=== PATIENT | male | born 1960 | race Two or more races ===

== ENCOUNTER 2017-08-07 01:40 | Inpatient (IN) | payer MEDICAID ==
[~2017-08-07] VITALS: Ht 180.3 cm; Wt 84.8 kg
--- NOTE | 2017-08-07 01:45 | NUR ---
TO BED 5 A 57 YO MALE PATIENT BB RA60 FROM [facility]. SOB PHANTOM PAIN OF L FOOT; PT HAS L BKA. GIVEN DILAUDID @ [facility] @00:00. HOB ELEVATED. PLACED ON O2 CANNULA AT 4LPM VIA NC PER DR BURGOS'S ORDERS. CARDIAC AND VS MONITORING ON. COMFORT AND SAFETY MEASURES IN PLACE. DR BURGOS AT BEDSIDE TO [facility].
[2017-08-07 02:16] LABS: BASOPHILS % (AUTO) 0.3 % (0.0-2.0); HEMATOCRIT 28 % (39-51); LYMPHOCYTES # (AUTO) 0.7 /CMM (0.8-4.8); LYMPHOCYTES % (AUTO) 8.2 % (20.0-44.0); MEAN CORPUSCULAR HEMOGLOBIN 29 PG (26.0-33.0); MEAN CORPUSCULAR HGB CONC 32 g/dl (31.0-36.0); MEAN CORPUSCULAR VOLUME 92 fL (80-96); MONOCYTES # (AUTO) 0.5 /CMM (0.1-1.30); MONOCYTES % (AUTO) 6.6 % (2.0-12.0); NEUTROPHILS # (AUTO) 6.9 /CMM (1.8-8.9); NEUTROPHILS % (AUTO) 84.9 % (43.0-81.0); PLATELET COUNT (AUTO) 248 /CMM (150-450); RED BLOOD CELL COUNT(AUTO) 3.09 MIL/uL (4.5-6.0); WHITE BLOOD COUNT (AUTO) 8.1 K/uL (4.3-11.0)
[2017-08-07 02:24] LABS: CALCIUM, SERUM 8.8 mg/dL (8.5-10.1); CREATININE 2.3 mg/dL (0.6-1.3); POTASSIUM 4.3 mmol/L (3.5-5.1)
[2017-08-07 02:28] LABS: INR 1.08 (0.87-1.13); PROTHROMBIN TIME 11.2 SECS (9.5-12.7)
[2017-08-07 02:32] LABS: TROPONIN I 0.331 ng/mL (0.00-0.056)
[2017-08-07 02:37] LABS: ALBUMIN 2.4 g/dL (3.4-5.0); BILIRUBIN,DIRECT 0.2 mg/dL (0.0-0.2); BILIRUBIN,TOTAL 0.6 mg/dL (0.2-1.0)
--- NOTE | 2017-08-07 02:38 | NUR ---
TELE 314-2
[2017-08-07] MEDS ORDERED: ASPIRIN 325 MG TABLET ONE (02:47)
[2017-08-07] MEDS ORDERED: LEVOFLOXACIN 750 MG /D5W 150ML PIGGYBACK IV ONE (03:00)
[2017-08-07] MEDS ORDERED: AZTREONAM 1 G in IV NS 0.9% 100 ML IV ONE (03:00)
[2017-08-07] MEDS ORDERED: ASPIRIN 325 MG TABLET PO ONE (03:00)
[2017-08-07] MEDS ORDERED: AZTREONAM 1 G VIAL ONE (03:08)
--- NOTE | 2017-08-07 03:23 | NUR ---
REPORT GIVEN TO MICHELLE GARCIA AND ARLETTE.
[2017-08-07] MEDS ORDERED: EPOE1VIA7 SQ (03:33)
[2017-08-07] MEDS ORDERED: TAMS-12 PO (03:33)
[2017-08-07] MEDS ORDERED: FURO-144 PO (03:33)
[2017-08-07] MEDS ORDERED: LISI-603 PO (03:33)
[2017-08-07] MEDS ORDERED: MAGN200T5 PO (03:33)
[2017-08-07] MEDS ORDERED: ATOR40TA PO (03:33)
[2017-08-07] MEDS ORDERED: FOLI0.8T2 PO (03:33)
[2017-08-07] MEDS ORDERED: METO25TA6 PO (03:33)
[2017-08-07] MEDS ORDERED: CRAN500C5 PO (03:33)
[2017-08-07] MEDS ORDERED: LEVO25TA9 PO (03:33)
[2017-08-07] MEDS ORDERED: LINA5TAB PO (03:33)
[2017-08-07] MEDS ORDERED: ASPI-991 PO (03:33)
[2017-08-07] MEDS ORDERED: CRAN400T4 PO (03:33)
[2017-08-07] MEDS ORDERED: CHOL200026 PO (03:33)
--- NOTE | 2017-08-07 03:48 | NUR ---
Transferred patient to tele bed 314-1 via als protocol, no incident noted. Endorsed to [place] that levaquin be given. Written order in chart.
--- NOTE | 2017-08-07 03:50 | NUR ---
MODELING DIRECTOR OPENING NOTES RECEIVED PT FROM ER NURSE IN FAIR CONDITION. PT IS A/O X4. PT IS SOB UPON EXCRETION AND WHEN THE HOB IS LOWERED. HE IS ON 4L O2 VIA NC AND SATING WELL AT 95%. TELE MONITOR PLACED AND BELONGINGS VERIFIED BY HUMAN RESOURCES TECHNICIAN. PT WAS ORIENTED TO ROOM AND VERBALIZED UNDERSTANDING OF USE OF CALL LIGHT. BED IN LOW LOCKED POSITION, SIDE RAILS UP X2, CALL LIGHT WITHIN REACH. AT BEDSIDE. WILL BEGIN ADMISSION PROCESS AND WAIT FOR FURTHER ORDERS FROM THE MD.
--- NOTE | 2017-08-07 04:56 | NUR ---
DESKTOP MANAGER NOTES PT TAKEN DOWN FOR NM PULMONARY PERF W/VENT
[2017-08-07] MEDS ORDERED: LEVOFLOXACIN 750 MG /D5W 150ML 150 ML IV ONE (05:20)
[2017-08-07] MEDS ORDERED: EPOETIN ALFA (10,000 UNIT) 10,000 UNIT/ML VIAL SQ SCH (05:30)
[2017-08-07] MEDS ORDERED: HYDROMORPHONE INJ 2 MG/ML DISP.SYRIN IV PRN (05:30)
[2017-08-07] MEDS ORDERED: POLYETHYLENE GLYCOL 3350 17 GM POWD.PACK PO PRN (05:30)
[2017-08-07] MEDS ORDERED: ALBUTEROL FS 2.5 MG/3 ML VIAL.NEB NEB PRN (05:30)
[2017-08-07] MEDS ORDERED: ACETAMINOPHEN 325 MG TABLET PO PRN (05:30)
[2017-08-07] MEDS ORDERED: LEVOFLOXACIN 750 MG /D5W 150ML 750 MG in PREMIX 1 EA IV ONE (05:30)
[2017-08-07] MEDS ORDERED: DEXTROSE 50%-WATER 50 ML DISP.SYRIN IV PRN (05:30)
[2017-08-07] MEDS ORDERED: ALBUTEROL FS 2.5 MG/3 ML VIAL.NEB ONE (05:52)
[2017-08-07 06:14] VITALS: BP 148/94
[2017-08-07] MEDS: BLOOD SUGAR DIAGNOSTIC 1 EACH STRIP IN SCH ×4 (06:15→21:30)
[2017-08-07 06:33] LABS: ABG BASE EXCESS -6.6 mmol/L; ABG PCO2 24.6 mmHg (35.0-45.0); ABG PH 7.434 (7.350-7.450); ABG PO2 77.7 mmHg (75.0-100.0); AaDO2 42.6 mmHg; MetHb 0.8 % (0.0-1.5); O2Hb 93.3 % (94.0-97.0); SITE, ABG Right Radial; VENT MODE, BG room air
[2017-08-07] MEDS: INSULIN REGULAR, HUMAN 100 UNIT/ML 3 ML VIAL SQ PRN ×2 (06:59→17:37)
[2017-08-07 07:30] LABS: BASOPHILS % (AUTO) 0.2 % (0.0-2.0); HEMATOCRIT 28 % (39-51); LYMPHOCYTES # (AUTO) 0.4 /CMM (0.8-4.8); LYMPHOCYTES % (AUTO) 4.2 % (20.0-44.0); MEAN CORPUSCULAR HEMOGLOBIN 29 PG (26.0-33.0); MEAN CORPUSCULAR HGB CONC 32 g/dl (31.0-36.0); MEAN CORPUSCULAR VOLUME 91 fL (80-96); MONOCYTES # (AUTO) 0.2 /CMM (0.1-1.30); MONOCYTES % (AUTO) 2.4 % (2.0-12.0); NEUTROPHILS # (AUTO) 8.1 /CMM (1.8-8.9); NEUTROPHILS % (AUTO) 93.2 % (43.0-81.0); PLATELET COUNT (AUTO) 252 /CMM (150-450); RED BLOOD CELL COUNT(AUTO) 3.09 MIL/uL (4.5-6.0); WHITE BLOOD COUNT (AUTO) 8.7 K/uL (4.3-11.0)
[2017-08-07 07:31] LABS: ALBUMIN 2.4 g/dL (3.4-5.0); BILIRUBIN,TOTAL 0.6 mg/dL (0.2-1.0); CALCIUM, SERUM 8.6 mg/dL (8.5-10.1); CREATININE 2.4 mg/dL (0.6-1.3); MAGNESIUM 1.9 mg/dL (1.8-2.4); PHOSPHORUS 4.4 mg/dL (2.5-4.9); POTASSIUM 4.5 mmol/L (3.5-5.1); TOTAL PROTEIN, SERUM 7.1 g/dL (6.4-8.2)
--- NOTE | 2017-08-07 07:33 | NUR ---
RATE CLERK CLOSING NOTES PT STABLE AT THIS TIME AFTER PRN BREATHING TX. ATTEMPT MADE TO CALL OIL DEVELOPER [facility] DOCTOR IN REGARDS TO [facility], BUT NO CALL BACK. NIGHTSHIFT NURSE MADE AWARE OF RESULTS. LEVAQUIN INFUSION FINISHING AT THIS TIME. IV ACCESS REMAINS PATENT AND INTACT. NO REDNESS OR SIGNS OF INFILTRATION NOTED. PT IS SR ON THE TELE MONITOR WITH A HR OF 67. VITAL SIGNS REMAIN STABLE. PT IS [id number] AT 98% ON 3L O2. BED IN LOW LOCKED POSITION, SIDE RAILS UP X2, CALL LIGHT WITHIN REACH. PT'S AT BEDSIDE. WILL ENDORSE TO DAYSHIFT NURSE FOR ARLETTE
[2017-08-07 07:35] LABS: TROPONIN I 0.343 ng/mL (0.00-0.056)
--- NOTE | 2017-08-07 07:41 | NUR ---
MS RN RECEIVED ON BED, AWAKE,ALERT,ORIENTED X4,NOT IN ANY FORM OF DISTRESS, RESPIRATIONS EVEN AND UNLABORED,NO SOB NOTED, LUNGS ARE CLEAR,ABDOMEN SOFT,POSITIVE BOWEL SOUNDS, DENIES PAIN AT THIS TIME, WILL MONITOR PATIENT'S CONDITION.
[2017-08-07 07:47] LABS: THYROID STIMULATING HORMONE 2.75 uIU/mL (0.358-3.74)
[2017-08-07 08:00] VITALS: BP 129/81
[2017-08-07] MEDS ORDERED: FUROSEMIDE 100 MG/10 ML VIAL IV SCH (08:30)
[2017-08-07] MEDS ORDERED: BUMETANIDE INJ 0.25 MG/ML VIAL IV SCH (09:00)
--- NOTE | 2017-08-07 09:00 | NUR ---
MS RN REFUSED BREAKFAST AND MEDS, WILL TRY LATER.
--- NOTE | 2017-08-07 09:20 | NUR ---
MS RN WAS SEEN BY TERESA OWUSU/ BRIONNA TO BE TRANSFERRED TO [facility] TODAY.
[2017-08-07] MEDS ORDERED: MORPHINE SULFATE INJ 4 MG/ML DISP.SYRIN IV PRN (09:30)
--- NOTE | 2017-08-07 11:30 | NUR ---
MS RN TERESA OWUSU CALLED TO KEEP PATIENT HERE, BECAUSE SURGERY WILL NOT BE DONE AT [facility].
--- NOTE | 2017-08-07 12:00 | NUR ---
MS GARCIA BS -243- REFUSED COVERAGE BECAUSE REFUSED LUNCH, MEDS WAS GIVEN,TOLERATED WELL.
[2017-08-07] MEDS: VIT B CMPLX 3/FA/VIT C/BIOTIN 1 TAB TABLET PO SCH (15:10)
[2017-08-07] MEDS: ASPIRIN EC 81 MG TABLET.DR PO SCH (15:10)
[2017-08-07] MEDS: PANTOPRAZOLE 40 MG TABLET.DR PO SCH (15:10)
[2017-08-07] MEDS: LINAGLIPTIN 5 MG TABLET PO SCH (15:11)
[2017-08-07] MEDS: METOPROLOL TARTRATE 25 MG TABLET PO SCH ×2 (15:13→17:28)
[2017-08-07] MEDS: MAGNESIUM OXIDE 400 MG TABLET PO SCH (15:17)
[2017-08-07] MEDS: CHOLECALCIFEROL 1,000 UNIT TABLET (VIT D3) PO SCH (15:17)
[2017-08-07] MEDS: LEVOTHYROXINE SODIUM 25 MCG TABLET PO SCH (15:21)
[2017-08-07] MEDS: MORPHINE SULFATE INJ 4 MG/ML DISP.SYRIN IV PRN (15:22)
[2017-08-07 16:00] VITALS: BP 122/78
--- NOTE | 2017-08-07 17:20 | NUR ---
MS GARCIA BS - 280-12 UNITS OF REGULAR INSULIN GIVEN, NO CHANGE OF CONDITION.
[2017-08-07] MEDS: FUROSEMIDE 100 MG/10 ML VIAL IV SCH (17:27)
--- NOTE | 2017-08-07 19:15 | NUR ---
ECONOMIC DEVELOPER - INITIAL NOTES PATIENT IN BED ALERT AND ORIENTED X3. NO S/S OF SOB AT THIS MOMENT. PATIENT IS SINUS 86. FRIEND IS AT BEDSIDE. BED IN LOW POSITION AND LOCKED. SIDERAILS X2 UP. WILL CONTINUE TO MONITOR PATIENT.
[2017-08-07 20:00] VITALS: BP 140/75
[2017-08-07] MEDS: ATORVASTATIN 40 MG TABLET PO SCH (21:22)
[2017-08-07] MEDS: TAMSULOSIN 0.4 MG CAP.SR.24H PO SCH (21:22)
[2017-08-07] MEDS: *INSULIN REGULAR(HUMULIN R)HUM 100 UNIT/ML VIAL SQ PRN (21:29)
[2017-08-08] VITALS: BP 141/77
[2017-08-08] MEDS: MORPHINE SULFATE INJ 4 MG/ML DISP.SYRIN IV PRN ×6 (00:18→21:42)
[2017-08-08 04:00] VITALS: BP 151/97
[2017-08-08] MEDS ORDERED: LEVOFLOXACIN 250 MG /D5W 50 ML 250 MG in PREMIX 1 EA IV SCH (06:00)
[2017-08-08] MEDS: PANTOPRAZOLE 40 MG TABLET.DR PO SCH (06:37)
[2017-08-08] MEDS: LEVOTHYROXINE SODIUM 25 MCG TABLET PO SCH (06:37)
[2017-08-08] MEDS: BLOOD SUGAR DIAGNOSTIC 1 EACH STRIP IN SCH ×4 (06:37→21:42)
[2017-08-08] MEDS: INSULIN REGULAR, HUMAN 100 UNIT/ML 3 ML VIAL SQ PRN ×3 (06:38→17:45)
[2017-08-08 06:50] LABS: BASOPHILS % (AUTO) 0.5 % (0.0-2.0); EOSINOPHILS # (AUTO) 0.3 /CMM (0.0-0.7); EOSINOPHILS % (AUTO) 4.7 % (0.0-6.0); HEMATOCRIT 26 % (39-51); HEMOGLOBIN 8.2 g/dL (13.5-17.5); LYMPHOCYTES # (AUTO) 0.9 /CMM (0.8-4.8); LYMPHOCYTES % (AUTO) 13.5 % (20.0-44.0); MEAN CORPUSCULAR HEMOGLOBIN 29 PG (26.0-33.0); MEAN CORPUSCULAR HGB CONC 32 g/dl (31.0-36.0); MEAN CORPUSCULAR VOLUME 91 fL (80-96); MONOCYTES # (AUTO) 0.6 /CMM (0.1-1.30); MONOCYTES % (AUTO) 8.9 % (2.0-12.0); NEUTROPHILS # (AUTO) 4.9 /CMM (1.8-8.9); NEUTROPHILS % (AUTO) 72.4 % (43.0-81.0); PLATELET COUNT (AUTO) 213 /CMM (150-450); RDW COEFFICIENT OF VARIATION 23.1 (11.5-15.0); RED BLOOD CELL COUNT(AUTO) 2.81 MIL/uL (4.5-6.0); WHITE BLOOD COUNT (AUTO) 6.8 K/uL (4.3-11.0)
[2017-08-08 06:59] LABS: ALBUMIN 1.9 g/dL (3.4-5.0); BILIRUBIN,TOTAL 0.5 mg/dL (0.2-1.0); CALCIUM, SERUM 8.6 mg/dL (8.5-10.1); CREATININE 2.2 mg/dL (0.6-1.3); MAGNESIUM 1.7 mg/dL (1.8-2.4); PHOSPHORUS 3.6 mg/dL (2.5-4.9); POTASSIUM 3.5 mmol/L (3.5-5.1); TOTAL PROTEIN, SERUM 5.9 g/dL (6.4-8.2)
--- NOTE | 2017-08-08 06:59 | NUR ---
MEDICAID ANALYST - CLOSING NOTES PATIENT IN BED. ALERT AND ORIENTED X3. NO S/S OF SOB OR ANY DISCOMFORT NOTED. TELE READING OF SR 84. WILL CONTINUE TO MONITOR PATIENT.
[2017-08-08 07:38] LABS: TROPONIN I 3.785 ng/mL (0.00-0.056)
--- NOTE | 2017-08-08 07:40 | NUR ---
RN NOTES RECEIVED PT. PT IS AWAKE AND RESTING IN BED. A/OX4. NO S/S OF RESPIRATORY DISTRESS. PT C/O PAIN AT 8/10, WILL ADDRESS NON-PHARMACOLOGICALLY UNTIL PRN IS DUE. PT IS ON RA. IV ACCESS LOCATED ON RIGHT AC 22G SL. LAB REPORTED THAT TROP ELEVATED TO 3.785, AWARE. SAFETY MEASURES IN PLACE, CALL LIGHT WITHIN REACH. WILL CONTINUE TO MONITOR.
[2017-08-08 08:00] VITALS: BP 140/81
[2017-08-08] MEDS: ASPIRIN EC 81 MG TABLET.DR PO SCH (08:42)
[2017-08-08] MEDS: CHOLECALCIFEROL 1,000 UNIT TABLET (VIT D3) PO SCH (08:42)
[2017-08-08] MEDS: FUROSEMIDE 100 MG/10 ML VIAL IV SCH ×2 (08:42→17:21)
[2017-08-08] MEDS: VIT B CMPLX 3/FA/VIT C/BIOTIN 1 TAB TABLET PO SCH (08:42)
[2017-08-08] MEDS: MAGNESIUM OXIDE 400 MG TABLET PO SCH (08:42)
[2017-08-08] MEDS: LINAGLIPTIN 5 MG TABLET PO SCH (08:42)
[2017-08-08 08:53] LABS: IRON, SERUM 29 ug/dl (50-175); TOTAL IRON BINDING CAPACITY 156 ug/dl (250-450)
[2017-08-08 09:12] LABS: FERRITIN 199 ng/mL (8-388)
[2017-08-08] MEDS: Magnesium 1GM/D5W 100ML PREMIX 100 ML IV SCH ×2 (10:06→11:47)
--- NOTE | 2017-08-08 10:55 | NUR ---
WOUND CARE CONSULT: PT PRESENTS WITH STAGE 2 ULCER TO SACRUM WITH RASH, AND RT HEEL DTI (INTACT) WITH RT LATERAL FOOT ESCHAR, ALL PRESENT ON ADMISSION. RECOMMENDATIONS MADE FOR SKIN PROTECTION AND WOUND CARE. DISCUSSED WITH NURSING STAFF. PT TO BE PLACED ON ISOFLEX LOW AIRLOSS BED. LEFT STUMP DRESSING IN PLACE WITH LEG IMMOBILIZER NOT DISTURBED. PT REFUSED REMOVAL OF LEFT LEG IMMOBILIZER AND DRESSING. RECOMMEND SURGICAL FOLLOW UP. WILL SEE PRN. TERRY IN AGREEMENT WITH PLAN OF CARE. Addendum: 08/08/17 at 1058 by AJAY SCHULTZ WNDNU Amended: Links added.
[2017-08-08] MEDS: CLOTRIMAZOLE 1% 15 GM TUBE TP SCH ×2 (11:00→17:46)
[2017-08-08] MEDS: HYDROGEL DRESSING 90 GM TUBE TP SCH (11:00)
[2017-08-08] MEDS: Z GUARD REMEDY 2 OZ OINT TP SCH (11:00)
[2017-08-08] MEDS ORDERED: HYDROGEL DRESSING 90 GM TUBE TP PRN (11:00)
[2017-08-08] MEDS ORDERED: Z GUARD REMEDY 2 OZ OINT TP PRN (11:00)
[2017-08-08] MEDS: METOPROLOL TARTRATE 25 MG TABLET PO SCH ×2 (12:25→17:51)
--- NOTE | 2017-08-08 13:33 | NUR ---
RN NOTES CALLED DR. HA'S OFFICE FOR CLARIFICATION OF HEPARIN DRIP ORDER. AWAITING HIS CALL.
[2017-08-08] MEDS ORDERED: HEPARIN SODIUM, PORCINE 5000 UNITS/1 ML VIAL SQ ONE (15:00)
[2017-08-08 15:22] LABS: INR 1.13 (0.87-1.13); PROTHROMBIN TIME 11.8 SECS (9.5-12.7)
[2017-08-08] MEDS ORDERED: HEPARIN SODIUM, PORCINE 5000 UNITS/1 ML VIAL IV ONE (15:30)
[2017-08-08 16:00] VITALS: BP 125/75
[2017-08-08] MEDS: HEPARIN INFUSION/D5W 500 ML IV PRN (16:26)
--- NOTE | 2017-08-08 16:45 | NUR ---
RN NOTES HEPARIN INFUSION BEGAN. PT: 1.8, INR: 1.13, PTT: 28.2. HEPARIN DRIP BEGAN AT A RATE OF 25.2 ML/HR OR 1260 UNITS/HR.
--- NOTE | 2017-08-08 16:46 | NUR ---
RN NOTES IV ACCESS INSERTED INTO RIGHT FOREARM 22G, SL.
--- NOTE | 2017-08-08 18:44 | NUR ---
RN CLOSING NOTES PT IS AWAKE AND RESTING IN BED. NO S/S OF DISTRESS OR SOB. PT HAS NO C/O PAIN AT THIS TIME. PT IS ON HEPARIN DRIP RUNNING AT 1260 UNITS/HR THROUGH RIGHT AC 22G. PTT SCHEDULED TO BE DRAWN AT 2226. ADDITIONAL IV ACCESS ON RIGHT FOREARM 22G SL. SAFETY MEASURES IN PLACE, CALL LIGHT WITHIN REACH. WILL ENDORSE TO LAW EXAMINER FOR ARLETTE.
--- NOTE | 2017-08-08 19:20 | NUR ---
RN NOTES RECEIVED PT IN BED, WITH FAMILY MEMBERS AT BEDSIDE. AWAKE, A/OX4, VERBALLY RESPONSIVE. NO S/S OF RESPIRATORY DISTRESS NOR SOB AT THIS TIME. IV SITE ON RIGHT AC 22G AND RFA INTACT AND PATENT. HEPARIN DRIP INFUSING WELL. NO S/S OF INFILTRATION AT THIS TIME. NO S/S OF UNUSUAL BLEEDING AT THIS TIME. SAFETY PRECAUTIONS OBSERVED. CALL LIGHT WITHIN REACH. WILL CONTINUE TO MONITOR.
[2017-08-08 20:00] VITALS: BP 118/69
[2017-08-08] MEDS: ATORVASTATIN 40 MG TABLET PO SCH (21:30)
[2017-08-08] MEDS: TAMSULOSIN 0.4 MG CAP.SR.24H PO SCH (21:31)
[2017-08-08] MEDS: *INSULIN REGULAR(HUMULIN R)HUM 100 UNIT/ML VIAL SQ PRN (21:46)
--- NOTE | 2017-08-08 21:56 | NUR ---
PT C/O LEFT FOOT PAIN ( PHANTOM LIMB PAIN ) , 04/10, NON PHARMACOLOGICAL INTERVENTION RENDERED INEFFECTIVE. PT REQUESTED FOR MORPHINE GIVEN ORDERED. BP : 129/69, HR : 75, 02 SAT : 95 % , RR : 20. WILL CONT TO MONITOR.
[2017-08-08] MEDS ORDERED: INSULIN DETEMIR 100 UNIT/ML CARTRIDGE SQ SCH (22:00)
--- NOTE | 2017-08-08 23:52 | NUR ---
HEPARIN DRIP INCREASED RATE BY 150 UNITS/ HR PER HEPARIN DOSING PROTOCOL FOR ACS, WITNESSED BY RADHA JOSE . CHARGE NURSE STACEY WEBSTER . WILL CONT TO MONITOR.
--- NOTE | 2017-08-08 23:52 | NUR ---
HEPARIN DRIP INCREASED RATE BY 150 UNITS/ HR = 1400 UNITS/HR , PER HEPARIN DOSING PROTOCOL FOR ACS, WITNESSED BY RADHA JOSE . CHARGE NURSE STACEY WEBSTER . WILL CONT TO MONITOR.
[2017-08-09] VITALS: BP 125/71
[2017-08-09 00:22] LABS: INR 1.1 (0.87-1.13); PROTHROMBIN TIME 11.4 SECS (9.5-12.7)
[2017-08-09] MEDS: METOPROLOL TARTRATE 25 MG TABLET PO SCH ×4 (00:22→17:30)
[2017-08-09] MEDS: MORPHINE SULFATE INJ 4 MG/ML DISP.SYRIN IV PRN ×6 (01:51→22:01)
[2017-08-09 04:00] VITALS: BP 121/70
[2017-08-09] MEDS: BLOOD SUGAR DIAGNOSTIC 1 EACH STRIP IN SCH ×4 (06:06→20:38)
[2017-08-09 06:32] LABS: BASOPHILS % (AUTO) 0.3 % (0.0-2.0); EOSINOPHILS # (AUTO) 0.2 /CMM (0.0-0.7); EOSINOPHILS % (AUTO) 3.3 % (0.0-6.0); HEMATOCRIT 25 % (39-51); HEMOGLOBIN 8.1 g/dL (13.5-17.5); LYMPHOCYTES # (AUTO) 1.6 /CMM (0.8-4.8); LYMPHOCYTES % (AUTO) 23.1 % (20.0-44.0); MEAN CORPUSCULAR HEMOGLOBIN 30 PG (26.0-33.0); MEAN CORPUSCULAR HGB CONC 32 g/dl (31.0-36.0); MEAN CORPUSCULAR VOLUME 92 fL (80-96); MONOCYTES # (AUTO) 0.6 /CMM (0.1-1.30); MONOCYTES % (AUTO) 8.7 % (2.0-12.0); NEUTROPHILS # (AUTO) 4.5 /CMM (1.8-8.9); NEUTROPHILS % (AUTO) 64.6 % (43.0-81.0); PLATELET COUNT (AUTO) 207 /CMM (150-450); RDW COEFFICIENT OF VARIATION 22.9 (11.5-15.0); RED BLOOD CELL COUNT(AUTO) 2.74 MIL/uL (4.5-6.0)
[2017-08-09 06:41] LABS: INR 1.11 (0.87-1.13); PROTHROMBIN TIME 11.6 SECS (9.5-12.7)
--- NOTE | 2017-08-09 06:49 | NUR ---
RN NOTES PT IN BED, RESTING COMFORTABLY AT THIS TIME, AWAKE, A/OX4, VERBALLY RESPONSIVE. NO S/S OF RESPIRATORY DISTRESS NOR SOB AT THIS TIME. IV SITE ON RIGHT AC 22G AND RFA INTACT AND PATENT. HEPARIN DRIP INFUSING WELL. NO S/S OF INFILTRATION AT THIS TIME. NO S/S OF ACTIVE BLEEDING AT THIS TIME. SAFETY PRECAUTIONS OBSERVED. CALL LIGHT WITHIN REACH. WILL ENDORSE TO NEXT SHIFT FOR ARLETTE.
--- NOTE | 2017-08-09 06:55 | NUR ---
RECEIVED APTT RESULT : 49, NO CHANGE RATE PER HEPARIN DOSING PROTOCOL FOR ACS, CHARGE NURSE STACEY WEBSTER.
[2017-08-09 07:02] LABS: ALBUMIN 1.8 g/dL (3.4-5.0); BILIRUBIN,TOTAL 0.4 mg/dL (0.2-1.0); CALCIUM, SERUM 8.5 mg/dL (8.5-10.1); CREATININE 2.1 mg/dL (0.6-1.3); MAGNESIUM 1.9 mg/dL (1.8-2.4); PHOSPHORUS 3.7 mg/dL (2.5-4.9); POTASSIUM 3.7 mmol/L (3.5-5.1); TOTAL PROTEIN, SERUM 5.6 g/dL (6.4-8.2)
--- NOTE | 2017-08-09 07:27 | NUR ---
CRM BUSINESS ANALYST OPENING NOTES RECEIVED PT AWAKE IN BED IN NO ACUTE SIGNS OF DISTRESS. A/O X 4. ABLE TO MAKE NEEDS KNOWN, DENIES PAIN OR DISCOMFORTS AT THIS TIME. ON ROOM AIR, RESPIRATION IS EVEN AND UNLABORED. PT ON TELE-MONITORING WITH CURRENT READING OF SR AND HR OF 66, NO C/O CHEST PAIN VOICED AT THIS TIME. IV ACCESS ON RIGHT AC G#22 INTACT AND PATENT WITH HEPARIN DRIP IN PROGRESS AT PRESCRIBED DRIP, NO INFILTRATION NOTED. PT ALSO HAS ANOTHER IV ACCESS AT RFA G#22 WHICH IS INTACT AND PATENT. BED IN LOW AND LOCKED POSITION. CALL LIGHT WITHIN REACH. WILL CONTINUE TO MONITOR PT ACCORDINGLY.
[2017-08-09] MEDS: LEVOTHYROXINE SODIUM 25 MCG TABLET PO SCH (07:59)
[2017-08-09] MEDS: PANTOPRAZOLE 40 MG TABLET.DR PO SCH (07:59)
[2017-08-09 08:00] VITALS: BP 126/74
[2017-08-09 08:02] LABS: TROPONIN I 1.811 ng/mL (0.00-0.056)
--- NOTE | 2017-08-09 08:11 | NUR ---
RN NOTES RECEIVED CALL FROM HIGH SCHOOL ASSISTANT FOOTBALL COACH JASEN AND REPORTED THAT PT'S TROPONIN LEVEL IS HIGH 1.811, DR HA ON UNIT AND MADE AWARE. WILL CONTINUE TO MONITOR.
[2017-08-09] MEDS: CLOTRIMAZOLE 1% 15 GM TUBE TP SCH ×2 (09:00→17:21)
[2017-08-09] MEDS: FUROSEMIDE 100 MG/10 ML VIAL IV SCH (09:16)
[2017-08-09] MEDS: MAGNESIUM OXIDE 400 MG TABLET PO SCH (09:16)
[2017-08-09] MEDS: VIT B CMPLX 3/FA/VIT C/BIOTIN 1 TAB TABLET PO SCH (09:16)
[2017-08-09] MEDS: Z GUARD REMEDY 2 OZ OINT TP SCH (09:16)
[2017-08-09] MEDS: ASPIRIN EC 81 MG TABLET.DR PO SCH (09:16)
[2017-08-09] MEDS: LINAGLIPTIN 5 MG TABLET PO SCH (09:16)
[2017-08-09] MEDS: CHOLECALCIFEROL 1,000 UNIT TABLET (VIT D3) PO SCH (09:20)
--- NOTE | 2017-08-09 09:35 | NUR ---
RN NOTES PT'S LEFT BKA STUMP NOTED WITH INTACT 39 AKIKO. NO BLEEDING OR DRAINAGE NOTED. PHOTO TAKEN AND FILED ON CHART. DRESSING DONE AND KEPT LEG ELEVATED WITH PILLOW. WILL CONTINUE TO MONITOR.
[2017-08-09] MEDS: HYDROGEL DRESSING 90 GM TUBE TP SCH (11:01)
[2017-08-09] MEDS: INSULIN REGULAR, HUMAN 100 UNIT/ML 3 ML VIAL SQ PRN ×2 (11:53→17:33)
[2017-08-09] MEDS: HEPARIN INFUSION/D5W 500 ML IV PRN (12:50)
[2017-08-09 16:00] VITALS: BP_SYST 112; BP_SYST 122; BP_DIAS 59; BP_DIAS 75
[2017-08-09] MEDS ORDERED: FUROSEMIDE 100 MG/10 ML VIAL IV SCH (17:00)
--- NOTE | 2017-08-09 18:39 | NUR ---
DELIVERY DEPARTMENT SUPERVISOR CLOSING NOTES PT RESTING AND WATCHING TV IN BED. A/O X 4. ABLE TO COMMUNICATE VERBALLY. NO SIGNIFICANT CHANGES NOTED DURING SHIFT. ON ROOM AIR, BREATHING WELL WITH NO SOB NOTED. ON TELE-MONITORING WITH CURRENT READING OF SR AND HR OF 69. IV ACCESS ON RIGHT AC G#22 INTACT AND PATENT WITH HEPARIN DRIP IN PROGRESS AT PRESCRIBED DRIP, NO SIGNS OF INFILTRATION NOTED. PT ALSO HAS ANOTHER IV ACCESS AT RFA G#22 WHICH IS INTACT AND PATENT, SL ONLY. KEPT BED IN LOW AND LOCKED POSITION. CALL LIGHT AND BEDSIDE TABLE WITHIN REACH. ALL NEEDS AND CARE ATTENDED WELL. WILL ENDORSED TO FURRIER DESIGNER FOR ARLETTE.
[2017-08-09 20:00] VITALS: BP 118/70
[2017-08-09] MEDS: *INSULIN REGULAR(HUMULIN R)HUM 100 UNIT/ML VIAL SQ PRN (21:04)
[2017-08-09] MEDS: TAMSULOSIN 0.4 MG CAP.SR.24H PO SCH (21:12)
[2017-08-09] MEDS: ATORVASTATIN 40 MG TABLET PO SCH (21:13)
[2017-08-09] MEDS: INSULIN DETEMIR 100 UNIT/ML CARTRIDGE SQ SCH (21:19)
[2017-08-10] VITALS: BP 125/72
[2017-08-10] MEDS: MORPHINE SULFATE INJ 4 MG/ML DISP.SYRIN IV PRN ×6 (02:09→23:18)
[2017-08-10 04:00] VITALS: BP 130/72
[2017-08-10] MEDS: METOPROLOL TARTRATE 25 MG TABLET PO SCH ×4 (06:33→17:43)
[2017-08-10] MEDS: PANTOPRAZOLE 40 MG TABLET.DR PO SCH (06:34)
[2017-08-10] MEDS: LEVOTHYROXINE SODIUM 25 MCG TABLET PO SCH (06:34)
[2017-08-10 06:42] LABS: BASOPHILS # (AUTO) 0.1 /CMM (0.0-0.2); BASOPHILS % (AUTO) 1.1 % (0.0-2.0); EOSINOPHILS # (AUTO) 0.3 /CMM (0.0-0.7); EOSINOPHILS % (AUTO) 6.1 % (0.0-6.0); HEMATOCRIT 27 % (39-51); HEMOGLOBIN 8.7 g/dL (13.5-17.5); LYMPHOCYTES # (AUTO) 1.5 /CMM (0.8-4.8); LYMPHOCYTES % (AUTO) 26.7 % (20.0-44.0); MEAN CORPUSCULAR HEMOGLOBIN 30 PG (26.0-33.0); MEAN CORPUSCULAR HGB CONC 32 g/dl (31.0-36.0); MEAN CORPUSCULAR VOLUME 91 fL (80-96); MONOCYTES # (AUTO) 0.6 /CMM (0.1-1.30); MONOCYTES % (AUTO) 11.2 % (2.0-12.0); NEUTROPHILS # (AUTO) 3.1 /CMM (1.8-8.9); NEUTROPHILS % (AUTO) 54.9 % (43.0-81.0); PLATELET COUNT (AUTO) 208 /CMM (150-450); RDW COEFFICIENT OF VARIATION 21.6 (11.5-15.0); RED BLOOD CELL COUNT(AUTO) 2.97 MIL/uL (4.5-6.0); WHITE BLOOD COUNT (AUTO) 5.6 K/uL (4.3-11.0)
[2017-08-10 06:55] LABS: INR 1.12 (0.87-1.13); PROTHROMBIN TIME 11.7 SECS (9.5-12.7)
[2017-08-10 07:13] LABS: CALCIUM, SERUM 8.5 mg/dL (8.5-10.1); POTASSIUM 4.1 mmol/L (3.5-5.1)
[2017-08-10 07:20] VITALS: BP 127/72
[2017-08-10] MEDS: BLOOD SUGAR DIAGNOSTIC 1 EACH STRIP IN SCH ×4 (07:30→21:08)
[2017-08-10] MEDS: LINAGLIPTIN 5 MG TABLET PO SCH (09:08)
[2017-08-10] MEDS: ASPIRIN EC 81 MG TABLET.DR PO SCH (09:08)
[2017-08-10] MEDS: VIT B CMPLX 3/FA/VIT C/BIOTIN 1 TAB TABLET PO SCH (09:08)
[2017-08-10] MEDS: CHOLECALCIFEROL 1,000 UNIT TABLET (VIT D3) PO SCH (09:08)
[2017-08-10] MEDS: FUROSEMIDE 100 MG/10 ML VIAL IV SCH ×3 (09:09→17:40)
[2017-08-10] MEDS: MAGNESIUM OXIDE 400 MG TABLET PO SCH (09:09)
[2017-08-10] MEDS: CLOTRIMAZOLE 1% 15 GM TUBE TP SCH ×2 (09:18→17:42)
[2017-08-10] MEDS: Z GUARD REMEDY 2 OZ OINT TP SCH (09:18)
[2017-08-10] MEDS: HEPARIN SODIUM, PORCINE 5000 UNITS/1 ML VIAL SQ SCH ×2 (09:18→21:08)
[2017-08-10] MEDS: HYDROGEL DRESSING 90 GM TUBE TP SCH (09:18)
[2017-08-10] MEDS: INSULIN REGULAR, HUMAN 100 UNIT/ML 3 ML VIAL SQ PRN ×2 (11:59→17:42)
[2017-08-10] MEDS ORDERED: Z GUARD REMEDY 2 OZ OINT TP PRN (15:30)
[2017-08-10 16:00] VITALS: BP 126/70
--- NOTE | 2017-08-10 19:01 | NUR ---
RN CLOSING NOTES PT IS IN BED RESTING, AT BEDSIDE. A/OX4, NO S/S OF RESPIRATORY DISTRESS OR SOB AT THIS TIME. PAIN RECENTLY MANAGED WITH PRN IVP MORPHINE. PT SET TO BE D/C TO ACUTE REHAB PENDING PLACEMENT. HEPARIN DRIP D/C PER MD ORDER. SAFETY MEASURES IN PLACE, CALL LIGHT IN REACH. WILL ENDORSE TO REFINERY OPERATOR HELPER FOR ARLETTE.
--- NOTE | 2017-08-10 19:48 | NUR ---
MS RN OPENING NOTES: RECEIVED PT RESTING IN BED AND IS ASLEEP AT THIS TIME. NO S/S OF DISTRESS NOTED AT THIS TIME. NO SOB NOTED. CALL LIGHT WITHIN PT'S REACH. BED KEPT IN LOW, LOCKED POSITION, AND SIDE RAILS X 2 UP. PT HAS IV ON R AC#22G AND IS CURRENTLY S/L. PT ALSO HAS IV ON R FOREARM #22G AND IS CURRENTLY S/L WELL. WILL CONTINUE TO MONITOR PT.
[2017-08-10 20:00] VITALS: BP 132/70
[2017-08-10] MEDS: ATORVASTATIN 40 MG TABLET PO SCH (21:08)
[2017-08-10] MEDS: TAMSULOSIN 0.4 MG CAP.SR.24H PO SCH (21:08)
[2017-08-10] MEDS: INSULIN DETEMIR 100 UNIT/ML CARTRIDGE SQ SCH (21:24)
[2017-08-10] MEDS: *INSULIN REGULAR(HUMULIN R)HUM 100 UNIT/ML VIAL SQ PRN (21:26)
--- NOTE | 2017-08-10 21:26 | NUR ---
MS RN NOTES: HAD TO MANUALLY ADMIN INSULIN SINCE BARCODE WAS ONLY SCANNING "AM" INSTEAD OF "HS". BLOOD SUGAR WAS 202. PT WAS ADMINISTERED LEVEMIR 12 UNITS AND HUMULIN 4 UNITS SQ. WAS GIVEN APPLESAUCE. WILL CONTINUE TO MONITOR PT.
--- NOTE | 2017-08-10 22:23 | NUR ---
MS RN NOTES: PT REPORTED THAT DOCTOR WHO CHANGED HIS DRESSING SAID NOT TO REMOVE DRESSING ON L KNEE STUMP. COULD NOT TAKE PHOTO DUE TO THAT.
[2017-08-11] MEDS: METOPROLOL TARTRATE 25 MG TABLET PO SCH ×3 (00:24→13:01)
--- NOTE | 2017-08-11 02:11 | NUR ---
MS RN NOTES: SPOKE TO EXCHANGE AND PAGED DR. MOORE. AWAITING FOR CALL BACK.
--- NOTE | 2017-08-11 02:16 | NUR ---
MS RN NOTES: SPOKE WITH DR. MOORE AND INFORMED HIM THAT PT IS COMPLAINING OF SOB. HOWEVER, PULSE OX SHOWS HE IS SATURATING AT 96% AND HE DOES NOT APPEAR TO BE IN ANY RESPIRATORY DISTRESS. OFFERED PT ALBUTEROL TREATMENT AND HE SAID THAT DOES NOT WORK. PT SAID ONLY THINGS THAT WORK IS LASIX. EXPLAINED TO PT THAT HE GOT [address] MOORE SAID THAT WAS ENOUGH FOR THE DAY AND HE HAS ANOTHER DOSE SCHEDULED IN THE MORNING AT 0900. NO ORDERS WERE GIVEN BY DR. MOORE.
[2017-08-11] MEDS: MORPHINE SULFATE INJ 4 MG/ML DISP.SYRIN IV PRN ×4 (03:18→15:06)
[2017-08-11] MEDS: BLOOD SUGAR DIAGNOSTIC 1 EACH STRIP IN SCH ×2 (06:05→11:54)
[2017-08-11] MEDS: INSULIN REGULAR, HUMAN 100 UNIT/ML 3 ML VIAL SQ PRN ×2 (06:32→12:02)
--- NOTE | 2017-08-11 06:32 | NUR ---
MS RN NOTES: HAD TO MANUALLY ADMIN INSULIN SINCE BARCODE IS NOT SCANNING THE READ. 2 UNITS OF INSULIN WAS ADMINISTERED TO COVER THE BLOOD SUGAR OF 142.
--- NOTE | 2017-08-11 07:15 | NUR ---
MS RN CLOSING NOTES: ALL NEEDS WERE ATTENDED AND ANTICIPATED FOR. PT IS SITTING UP IN BED AND IS AWAKE. PT IS ANTICIPATING FOR HIS NEXT DUE PAIN MEDS. NO S/S OF DISTRESS NOTED AT THIS TIME. NO SOB NOTED. CALL LIGHT WITHIN PT'S REACH. BED KEPT IN LOW, LOCKED POSITION, AND SIDE RAILS X 2 UP. PT HAS IV ON R AC#22G AND IS CURRENTLY S/L. PT ALSO HAS IV ON R FOREARM #22G AND IS CURRENTLY S/L WELL. BOTH HAVE BEEN FLUSHED AND IS PATENT AND INTACT. ENDORSED TO AM NURSE FOR ARLETTE.
[2017-08-11 07:29] LABS: BASOPHILS % (AUTO) 0.2 % (0.0-2.0); EOSINOPHILS # (AUTO) 0.3 /CMM (0.0-0.7); EOSINOPHILS % (AUTO) 7.2 % (0.0-6.0); HEMATOCRIT 28 % (39-51); LYMPHOCYTES # (AUTO) 1.4 /CMM (0.8-4.8); MEAN CORPUSCULAR HEMOGLOBIN 29 PG (26.0-33.0); MEAN CORPUSCULAR HGB CONC 32 g/dl (31.0-36.0); MEAN CORPUSCULAR VOLUME 90 fL (80-96); MONOCYTES # (AUTO) 0.6 /CMM (0.1-1.30); NEUTROPHILS # (AUTO) 2.2 /CMM (1.8-8.9); NEUTROPHILS % (AUTO) 48.6 % (43.0-81.0); PLATELET COUNT (AUTO) 191 /CMM (150-450); RDW COEFFICIENT OF VARIATION 20.7 (11.5-15.0); WHITE BLOOD COUNT (AUTO) 4.5 K/uL (4.3-11.0)
--- NOTE | 2017-08-11 07:30 | NUR ---
MS RN OPENING NOTES RECEIVED PATIENT IN STABLE CONDITION. IN NO APPARENT DISTRESS. PATIENT IS ALERT AND RESTING IN BED. BEDSIDE RAILS ARE UP X2. BED IS LOCKED AND LOWERED. CALL LIGHT IS WITHIN REACH. WILL CONTINUE TO MONITOR.
[2017-08-11] MEDS: LEVOTHYROXINE SODIUM 25 MCG TABLET PO SCH (07:41)
[2017-08-11 07:58] LABS: ALBUMIN 1.9 g/dL (3.4-5.0); BILIRUBIN,TOTAL 0.5 mg/dL (0.2-1.0); CALCIUM, SERUM 8.1 mg/dL (8.5-10.1); CREATININE 1.8 mg/dL (0.6-1.3); MAGNESIUM 1.6 mg/dL (1.8-2.4); POTASSIUM 3.3 mmol/L (3.5-5.1); TOTAL PROTEIN, SERUM 5.8 g/dL (6.4-8.2)
[2017-08-11 08:00] VITALS: BP 140/83
[2017-08-11 08:04] LABS: TROPONIN I 1.001 ng/mL (0.00-0.056)
[2017-08-11] MEDS ORDERED: FURO40TA5 PO (08:32)
[2017-08-11] MEDS ORDERED: INSU100I19 SQ (08:32)
[2017-08-11] MEDS ORDERED: INSU100V28 SQ (08:32)
[2017-08-11] MEDS ORDERED: FUROSEMIDE 40 MG/4 ML VIAL IV SCH (09:00)
[2017-08-11] MEDS ORDERED: METOLAZONE 2.5 MG TABLET PO SCH (09:00)
[2017-08-11] MEDS ORDERED: FUROSEMIDE 40 MG TABLET PO SCH (09:00)
[2017-08-11] MEDS: ASPIRIN EC 81 MG TABLET.DR PO SCH (09:21)
[2017-08-11] MEDS: MAGNESIUM OXIDE 400 MG TABLET PO SCH (09:21)
[2017-08-11] MEDS: CHOLECALCIFEROL 1,000 UNIT TABLET (VIT D3) PO SCH (09:21)
[2017-08-11] MEDS: HYDROGEL DRESSING 90 GM TUBE TP SCH (09:21)
[2017-08-11] MEDS: LINAGLIPTIN 5 MG TABLET PO SCH (09:21)
[2017-08-11] MEDS: VIT B CMPLX 3/FA/VIT C/BIOTIN 1 TAB TABLET PO SCH (09:21)
[2017-08-11] MEDS: CLOTRIMAZOLE 1% 15 GM TUBE TP SCH (09:22)
[2017-08-11] MEDS: Z GUARD REMEDY 2 OZ OINT TP SCH (09:25)
[2017-08-11] MEDS: POTASSIUM CHLORIDE 20 MEQ TAB.PRT.SR PO SCH ×3 (09:33→11:56)
[2017-08-11] MEDS: FUROSEMIDE 100 MG/10 ML VIAL IV SCH ×2 (09:33→13:00)
[2017-08-11] MEDS: HEPARIN SODIUM, PORCINE 5000 UNITS/1 ML VIAL SQ SCH (09:51)
[2017-08-11] MEDS: Magnesium 1GM/D5W 100ML PREMIX 100 ML IV SCH ×2 (09:55→11:28)
--- NOTE | 2017-08-11 12:00 | NUR ---
BLOOD SUGAR 140. 2 UNITS OF INSULIN GIVEN.
[2017-08-11 13:01] VITALS: BP 140/83
--- NOTE | 2017-08-11 14:00 | NUR ---
PATIENT DISCHARGE IN STABLE CONDITION TO [facility]. PATIENT IS IN NO APPARENT DISTRESS. GAVE REPORT TO [facility]. ALL NEEDS WERE MET. DISCHARGE EDUCATION WAS PROVIDED TO THE PATIENT AND TO THE PARAMEDICS. EXITCARE EDUCATION WAS GIVEN. VITAL SIGNS ARE STABLE. BELONGINGS LIST WAS VERIFIED. MORPHINE 6MG WAS GIVEN AT 1500 JUST PRIOR TO TRANSFER FOR COMFORT.
== END 2017-08-11 16:15 | disposition short-term general hospital (02) | DRG 194 ==
LOC: ER 01:44 → TELE 03:38 → MED 08-10 10:59
PROVIDERS: ADMIT Internal Medicine; ATTEND Internal Medicine
DX: I13.0 Hypertensive heart and chronic kidney disease with heart failure and stage 1 through stage 4 chronic kidney disease, or unspecified chronic kidney disease (principal); I21.4 Non-ST elevation (NSTEMI) myocardial infarction; L89.152 Pressure ulcer of sacral region, stage 2; J18.9 Pneumonia, unspecified organism; E11.21 Type 2 diabetes mellitus with diabetic nephropathy; N17.9 Acute kidney failure, unspecified; E11.22 Type 2 diabetes mellitus with diabetic chronic kidney disease; N18.3 Chronic kidney disease, stage 3 (moderate); I11.0 Hypertensive heart disease with heart failure; E11.51 Type 2 diabetes mellitus with diabetic peripheral angiopathy without gangrene; E11.621 Type 2 diabetes mellitus with foot ulcer; I50.23 Acute on chronic systolic (congestive) heart failure; Z89.512 Acquired absence of left leg below knee; Z87.891 Personal history of nicotine dependence; Z79.899 Other long term (current) drug therapy; Z79.82 Long term (current) use of aspirin; Z79.4 Long term (current) use of insulin; N40.0 Benign prostatic hyperplasia without lower urinary tract symptoms; I25.10 Atherosclerotic heart disease of native coronary artery without angina pectoris; E78.5 Hyperlipidemia, unspecified; L89.619 Pressure ulcer of right heel, unspecified stage; E83.42 Hypomagnesemia; E03.9 Hypothyroidism, unspecified; D63.8 Anemia in other chronic diseases classified elsewhere; L97.419 Non-pressure chronic ulcer of right heel and midfoot with unspecified severity; I25.5 Ischemic cardiomyopathy; I34.0 Nonrheumatic mitral (valve) insufficiency; I70.0 Atherosclerosis of aorta
CPT/HCPCS: 36415; 36600; 71010-TC; 76770-TC; 80048-TC; 80053-TC; 80061-TC; 80076-TC; 82728-TC; 82803-TC; 82962-TC; 83540-TC; 83605-TC; 83735-TC; 83880; 84100-TC; 84443-TC; 84484-TC; 85025-TC; 85610-TC; 85730-TC; 87040-TC; 87081-TC; 93307-TC; A4216; A4606; A6248; A6402; A6403; J1644; J1815; J1940; J1956; J2270; J3475; J3490; J7030; J7050; Z7610